=== PATIENT | female | born 2000 | race Caucasian/White ===

== ENCOUNTER 2022-07-09 13:15 | Outpatient (CLI) | payer BC ==
[2022-07-09 17:53] LABS: HCG UR QUAL NEGATIVE
== END 2022-07-09 13:30 | disposition home or self-care (01) ==
LOC: LAB.N 13:15
PROVIDERS: ATTEND Nurse Practitioner
DX: N39.0 Urinary tract infection, site not specified (principal)
CPT/HCPCS: 81025; 87086; 87181

== ENCOUNTER 2023-01-12 14:09 | Outpatient (CLI) | payer BC ==
[2023-01-12 14:37] LABS: BASOPHILS # (AUTO) 0.1 10^3/uL (0.0-0.1); BASOPHILS % (AUTO) 0.6 %; EOSINOPHILS # (AUTO) 0.1 10^3/uL (0.0-0.7); EOSINOPHILS % (AUTO) 0.7 %; HCT - HEMATOCRIT 41.2 % (37.0-47.0); HGB - HEMOGLOBIN 13.6 g/dL (12.0-16.0); LYMPHOCYTES # (AUTO) 3.4 10^3/uL (1.5-3.5); LYMPHOCYTES % (AUTO) 34.6 %; MEAN CORPUSCULAR HEMOGLOBIN 29.4 pg (27.0-31.0); MEAN CORPUSCULAR VOLUME 89.2 fL (81.0-99.0); MEAN PLATELET VOLUME 10.3 fL (7.9-10.8); MONOCYTES # (AUTO) 0.5 10^3/uL (0.0-1.0); MONOCYTES % (AUTO) 5.3 %; NEUTROPHILS # (AUTO) 5.8 10^3/uL (1.5-6.6); NEUTROPHILS % (AUTO) 58.5 %; PLT - PLATELET COUNT 334 10^3/uL (130-450); RED BLOOD COUNT 4.62 10^6/uL (4.20-5.40); RED CELL DISTRIBUTION WIDTH 12.4 % (12.0-15.0); WHITE BLOOD COUNT 9.9 x10^3/uL (4.8-10.8)
[2023-01-12 14:41] LABS: ALBUMIN 4.2 g/dL (3.2-5.5); ALBUMIN/GLOBULIN RATIO 1.5 (1.0-2.2); ALKALINE PHOSPHATASE 49 IU/L (42-121); ALT ALANINE AMINOTRANSFERASE 15 IU/L (10-60); AST ASPARTATE AMINOTRANSFERASE 15 IU/L (10-42); BILIRUBIN,TOTAL 0.2 mg/dL (0.2-1.0); BUN - BLOOD UREA NITROGEN 10 mg/dL (6-20); CALCIUM 9.5 mg/dL (8.5-10.3); CARBON DIOXIDE - CO2 27 mmol/L (21-32); CHLORIDE 105 mmol/L (101-111); CHOL/HDL RATIO 2.5 (<4.4); CHOLESTEROL 183 mg/dL; CREATININE 0.9 mg/dL (0.6-1.3); GFR - MDRD 77 (>89); GLUCOSE 105 mg/dL (74-104); HDL CHOLESTEROL 72 mg/dL; LDL CHOLESTEROL,CALCULATED 86 mg/dL; LDL/HDL RATIO 1.2 (<4.4); POTASSIUM 4.4 mmol/L (3.5-4.5); SODIUM 136 mmol/L (135-145); TRIGLYCERIDES 127 mg/dL (48-352); VLDL CHOLESTEROL 25 mg/dL
[2023-01-12 14:55] LABS: THYROID STIMULATING HORMONE 1.08 uIU/mL (0.34-5.60)
== END 2023-01-12 14:10 | disposition home or self-care (01) ==
LOC: LAB 14:09
PROVIDERS: ATTEND Physician Assistant
DX: Z13.9 Encounter for screening, unspecified (principal)
CPT/HCPCS: 36415; 80053; 80061; 83721; 84443; 85025

== ENCOUNTER 2023-02-21 14:57 | Outpatient (CLI) | payer BC ==
--- NOTE | 2023-02-21 17:41 | Ultrasound Report ---
PROCEDURE: Pelvic w/Transvaginal INDICATIONS: PELVIC PAIN TECHNIQUE: Real-time scanning was performed of the pelvic organs, with image documentation. Additional endovagi nal scanning was necessary due to incomplete visualization of the adnexal and endometrial structures by transabdominal scanning. COMPARISON: None. FINDINGS: Uterus: Uterus is anteverted and normal in size at 7.3 x 3.1 x 4.1 cm. The myometrium is homogeneou s. The endometrium measures 1.8 mm and mm in combined thickness. No fibroids. Ovaries: The right ovary measures 2.6 x 1.4 x 1.1 cm, with a calculated ovarian volume of 2.1 cc. T he left ovary is not visualized. The ovaries have a normal sonographic appearance. Less than 12 foll icles can be seen in each ovary. No adnexal masses are seen. No cystic lesions measuring greater bro n 3 cm. Other: No pathologic free abdominal or pelvic fluid. IMPRESSION: 1. No acute ultrasound abnormality of the pelvis. 2. Left ovary is not visualized due to overlying bowel. Reviewed by: Byron Fallon on 02/21/2023 5:40 PM PDT Approved by: Byron Fallon on 02/21/2023 5:40 PM PDT Station ID: [id number]
== END 2023-02-21 14:58 | disposition home or self-care (01) ==
LOC: DI 14:57
PROVIDERS: ATTEND Obstetrics & Gynecology
DX: R10.2 Pelvic and perineal pain (principal); N93.9 Abnormal uterine and vaginal bleeding, unspecified

== ENCOUNTER 2023-03-29 15:15 | Outpatient (CLI) | payer OTHER, BC | END 2023-03-29 15:30 | disposition home or self-care (01) | LOC: LAB.N 15:15 | PROVIDERS: ATTEND Specialist | DX: R30.0 Dysuria (principal) | CPT/HCPCS: 87086 ==

== ENCOUNTER 2023-04-20 21:35 | Outpatient (CLI) | payer OTHER, BC | END 2023-04-20 21:36 | disposition critical access hospital (66) | LOC: EMS 21:35 | DX: R41.82 Altered mental status, unspecified (principal); F10.90 Alcohol use, unspecified, uncomplicated; R45.6 Violent behavior; Z78.1 Physical restraint status | CPT/HCPCS: A0425; A0429 ==

== ENCOUNTER 2023-04-20 21:58 | Emergency (ER) | payer OTHER, BC ==
--- NOTE | 2023-04-20 23:08 | ED Physician Documentation ---
History of Present Illness - Stated complaint Stated Complaint: ETOH - Chief complaint Chief Complaint: Neuro - History obtained from History obtained from: Patient, EMS, Police - Additonal information Additional information: BIBA. Police were called for domestic disturbance which resulted in patient being placed under arrest. Patient appears to be intoxicated with alcohol with slurred speech and combative behavior requiring restraints en route by EMS. Police are seeking a medical clearance/fit for confinement. Upon arrival to ED restraints are removed, as patient is no longer combative. I was evaluating another patient when EMS arrived and gave report to ED RN; by the time of my evaluation, patient is asleep. She only awakens briefly with combination of gentle tactile stimulation (was not responding to verbal stimulation alone), and repeatedly falls asleep before answering any questions or following commands. Review of Systems Unable to obtain: Intoxicated PD PAST MEDICAL HISTORY - Past Medical History Other Past Medical History: unknown - Present Medications Home Medications: Ambulatory Orders Medication Instructions Recorded Confirmed ARIPiprazole [Aripiprazole] 10 mg PO DAILY 04/21/23 04/21/23 buPROPion [Wellbutrin Xl] 300 mg PO DAILY 04/21/23 04/21/23 hydrOXYzine HCL [Hydroxyzine HCl] 10 mg PO TID PRN 04/21/23 04/21/23 - Allergies Allergies/Adverse Reactions: Allergies Allergy/AdvReac Type Severity Reaction Status Date / Time No Known Drug Allergies Allergy Verified 04/20/23 22:15 - Social History Does the pt smoke?: No Smoking Status: Never smoker Does the pt drink ETOH?: Yes PD ED PE NORMAL - Vitals Vital signs reviewed: Yes - General General: No acute distress, Well developed/nourished, Other (sleeping, awakens briefly to verbal/tactile stimulus but rapidly and repeatedly falls back asleep ) - HEENT HEENT: Atraumatic, PERRL - Cardiac Cardiac: RRR, No murmur - Respiratory Respiratory: No respiratory distress, Clear bilaterally - Abdomen Abdomen: Soft, Non distended - Neuro Eye Opening: To Voice Motor: Localizes to Pain Verbal: None GCS Score: 9 PD ED PE EXPANDED - Extremities Extremities: Other (echymoses flexor aspects of right distal humerus and right proximal FA. No deformity. ) Results - Vitals Vitals: Oxygen O2 Source Room air - Labs Labs: Laboratory Tests 04/20/23 04/20/23 04/20/23 22:05 22:05 23:51 WBC 14.8 H RBC 4.62 Hgb 13.0 Hct 40.2 MCV 87.0 MCH 28.1 MCHC 32.3 RDW 12.3 Plt Count 286 MPV 10.2 Neut # (Auto) 11.9 H Lymph # (Auto) 2.2 [place] # (Auto) 0.7 Eos # (Auto) 0.0 Baso # (Auto) 0.1 Absolute Nucleated RBC 0.00 Nucleated RBC % 0.0 Sodium Potassium Chloride Carbon Dioxide Anion Gap BUN Creatinine Estimated GFR (MDRD) Glucose Calcium Total Bilirubin AST ALT Alkaline Phosphatase Total Protein Albumin Globulin Albumin/Globulin Ratio Lipase Urine HCG, Qual NEGATIVE Urine Opiates Screen NEGATIVE Ur Buprenorphine Scrn NEGATIVE Ur Oxycodone Screen NEGATIVE Urine Methadone Screen NEGATIVE Ur Barbiturates Screen NEGATIVE Ur Tricyclics Screen NEGATIVE Ur Phencyclidine Scrn NEGATIVE Ur Amphetamine Screen NEGATIVE U Methamphetamines Scrn NEGATIVE U Benzodiazepines Scrn NEGATIVE Urine Cocaine Screen NEGATIVE U Cannabinoids Screen POSITIVE H Ur Drug Screen Comment CUTOFF CONC BELOW: Ethyl Alcohol 04/20/23 23:51 WBC RBC Hgb Hct MCV MCH MCHC RDW Plt Count MPV Neut # (Auto) Lymph # (Auto) [place] # (Auto) Eos # (Auto) Baso # (Auto) Absolute Nucleated RBC Nucleated RBC % Sodium 139 Potassium 3.5 Chloride 108 Carbon Dioxide 24 Anion Gap 7.0 BUN 8 Creatinine 0.9 Estimated GFR (MDRD) 77 L Glucose 99 Calcium 9.1 Total Bilirubin 0.2 AST 45 H ALT 32 Alkaline Phosphatase 56 Total Protein 7.2 Albumin 4.2 Globulin 3.0 Albumin/Globulin Ratio 1.4 Lipase 34 Urine HCG, Qual Urine Opiates Screen Ur Buprenorphine Scrn Ur Oxycodone Screen Urine Methadone Screen Ur Barbiturates Screen Ur Tricyclics Screen Ur Phencyclidine Scrn Ur Amphetamine Screen U Methamphetamines Scrn U Benzodiazepines Scrn Urine Cocaine Screen U Cannabinoids Screen Ur Drug Screen Comment Ethyl Alcohol 192.0 - Rads (name of study) right humerus xrays Relevant Findings:: Prelim report reviewed, See rad report PD Medical Decision Making - ED course Complexity details: reviewed results, re-evaluated patient, considered differential, d/w patient ED course: Testing undertaken due to significant AMS on my exam (as noted above). She is found to have serum ethanol level of 0.192 which likely accounts for her AMS, which is further supported by her gradually improving GCS and LOC during observation in ED. UDS is positive for cannabinoids. ER abdominal panel is normal (except for insignificant/noncontributory findings of GFR 77, AST 45). UHCG negative (performed because positive result would contraindicate some medications that might be given during ED stay, particularly given EMS report of combative behavior that required restraints en route to ED). As she became more awake and alert, she is also crying and , eventually, wailing loudly. She says her RUE hurts and there is TTP of the right distal upper arm (where there are echymoses) but not the right FA, and ROM intact in right elbow, wrist. Right humeral xrays do not have evidence of acute bony injury such as fracture, dislocation. While awaiting results of xrays and the tests (above), she became increasingly agitated, demanding trazadone 50mg which she says she is prescribed. Looking at outpatient rx fills on [facility], I do not see trazadone. I ordered 2 mg PO lorazepam for her anxiety which she is agreeable to take although still loudly demanding 50mg trazadone. She gradually became more calm over timeframe appropriate for [id number] for the lorazepam. She remained awake and alert, was oriented x 3 on final reexamination prior to d/c. She is medically cleared (fit) for confinement. Departure - Departure Disposition: 01 Home, Self Care Clinical Impression: Alcohol intoxication Condition: Good Instructions: ED Alcohol Intoxication Discharge Date/Time: 04/21/23 01:38
[2023-04-20] MEDS ORDERED: SODIUM CHLORIDE 0.9% 1,000 ML IV STA (23:33)
[2023-04-20 23:56] LABS: BASOPHILS # (AUTO) 0.1 10^3/uL (0.0-0.1); BASOPHILS % (AUTO) 0.3 %; EOSINOPHILS % (AUTO) 0.1 %; HCT - HEMATOCRIT 40.2 % (37.0-47.0); LYMPHOCYTES # (AUTO) 2.2 10^3/uL (1.5-3.5); LYMPHOCYTES % (AUTO) 14.6 %; MEAN CORPUSCULAR HEMOGLOBIN 28.1 pg (27.0-31.0); MEAN CORPUSCULAR HGB CONC 32.3 g/dL (32.0-36.0); MEAN PLATELET VOLUME 10.2 fL (7.9-10.8); MONOCYTES # (AUTO) 0.7 10^3/uL (0.0-1.0); MONOCYTES % (AUTO) 4.4 %; NEUTROPHILS # (AUTO) 11.9 10^3/uL (1.5-6.6); NEUTROPHILS % (AUTO) 80.3 %; PLT - PLATELET COUNT 286 10^3/uL (130-450); RED BLOOD COUNT 4.62 10^6/uL (4.20-5.40); RED CELL DISTRIBUTION WIDTH 12.3 % (12.0-15.0); WHITE BLOOD COUNT 14.8 x10^3/uL (4.8-10.8)
[2023-04-21 00:05] LABS: AMPHETAMINE SCREEN,URINE NEGATIVE (NEGATIVE); BARBITURATE SCREEN,UR NEGATIVE (NEGATIVE); BENZODIAZEPINES SCREEN, URINE NEGATIVE (NEGATIVE); BUPRENORPHINE SCREEN, URINE NEGATIVE (NEGATIVE); COCAINE SCREEN URINE NEGATIVE (NEGATIVE); METHADONE SCREEN, URINE NEGATIVE (NEGATIVE); METHAMPHETAMINES SCREEN, URINE NEGATIVE (NEGATIVE); OPIATE SCREEN, URINE NEGATIVE (NEGATIVE); OXYCODONE SCREEN, URINE NEGATIVE (NEGATIVE); THC CANNABINOID SCREEN, URINE POSITIVE (NEGATIVE); TRICYCLIC ANTIDEPRESSANT,URINE NEGATIVE (NEGATIVE)
[2023-04-21 00:14] LABS: ALBUMIN 4.2 g/dL (3.2-5.5); ALBUMIN/GLOBULIN RATIO 1.4 (1.0-2.2); BILIRUBIN,TOTAL 0.2 mg/dL (0.2-1.0); CALCIUM 9.1 mg/dL (8.5-10.3); CREATININE 0.9 mg/dL (0.6-1.3); POTASSIUM 3.5 mmol/L (3.5-4.5); TOTAL PROTEIN 7.2 g/dL (6.4-8.9)
[2023-04-21 00:24] LABS: HCG UR QUAL NEGATIVE
[2023-04-21 00:26] VITALS: O2SAT 99
[2023-04-21] MEDS ORDERED: LORazepam 0.5 MG TABLET PO STA (00:46)
[2023-04-21 01:37] VITALS: BP 141/97
--- NOTE | 2023-04-21 01:39 | XRAY Report ---
PROCEDURE: Humerus RT INDICATIONS: injury, bruising and TTP TECHNIQUE: 2 views of the humerus were acquired. COMPARISON: None. FINDINGS: Bones: No fractures or dislocations. No suspicious bony lesions. Soft tissues: No suspicious soft tissue calcifications or masses. IMPRESSION: No visualized acute fracture or dislocation. However, occult injury cannot be excluded. Recommend rosangela rt interval imaging follow-up in 7-10 days as clinically indicated for additional evaluation. Reviewed by: Kassie Edgar MD on 04/21/2023 1:37 AM PST Approved by: Kassie Edgar MD on 04/21/2023 1:37 AM [facility] Station ID: [id number]
== END 2023-04-21 01:38 | disposition home or self-care (01) ==
LOC: EDUNIT# → ED 21:58
DX: F10.129 Alcohol abuse with intoxication, unspecified (principal); Y90.6 Blood alcohol level of 120-199 mg/100 ml
CPT/HCPCS: 36415; 73060; 80053; 80306; 80320; 81025; 83690; 85025; 99283; 99284; A9270

== ENCOUNTER 2023-04-29 08:00 | Outpatient (CLI) | payer OTHER, BC ==
[2023-04-29 21:05] LABS: BACTERIAL VAGINOSIS DNA POSITIVE (NEGATIVE); CANDIDA GLABRATA DNA NEGATIVE (NEGATIVE); CANDIDA GROUP DNA NEGATIVE (NEGATIVE); CANDIDA KRUSEI DNA NEGATIVE (NEGATIVE); TRICHOMONAS VAGINALIS DNA NEGATIVE (NEGATIVE)
== END 2023-04-29 08:15 | disposition home or self-care (01) ==
LOC: LAB.N 08:00
PROVIDERS: ATTEND Physician Assistant Medical
DX: N89.8 Other specified noninflammatory disorders of vagina (principal); R30.0 Dysuria
CPT/HCPCS: 81514; 87077; 87086; 87181

== ENCOUNTER 2023-07-26 08:45 | Outpatient (CLI) | payer OTHER, BC | END 2023-07-26 09:00 | disposition home or self-care (01) | LOC: LAB.N 08:45 | PROVIDERS: ATTEND Nurse Practitioner | DX: R30.0 Dysuria (principal) | CPT/HCPCS: 87086 ==